=== PATIENT | male | born 1970 | race African-American/Black ===

== ENCOUNTER 2025-03-02 15:45 | Emergency (ER) | payer OTHER, SELFPAY ==
[2025-03-02 15:48] VITALS: BP 134/82
[2025-03-02 16:32] LABS: ALT (SGPT) 15 U/L (0-50); AST (SGOT) 18 U/L (17-59); Albumin 4.1 g/dl (3.5-5.0); Alkaline Phosphatase 83 U/L (38-126); Blood Urea Nitrogen 14 mg/dl (9-20); Calcium 12.4 mg/dl (8.4-10.2); Carbon Dioxide 26 mmol/L (22-30); Chloride 111 mmol/L (98-107); Glucose 93 mg/dl (70-99); Potassium 4.1 mmol/L (3.5-5.1); Sodium 141 mmol/L (135-145); Total Protein 7.6 g/dl (6.3-8.2); eGFR > 60.00
[2025-03-02 16:38] LABS: Hematocrit 41.7 % (39.0-52.0); Hemoglobin 14.0 g/dL (13.0-18.0); Mean Corp Hgb Conc. 33.6 g/dL (33.0-37.0); Mean Corpuscular Volume 92.3 fL (80.0-94.0); Nucleated Red Blood Cells % 0 % (-); Platelet Count 264 10^3/uL (130-400); Red Cell Dist. Width 12.8 % (11.5-14.5)
[2025-03-02 19:52] VITALS: BP 142/83
[2025-03-02 19:53] VITALS: BMI 25.8
--- NOTE | 2025-03-02 20:12 | ED.GENMED ---
History of Present Illness
General
Chief Complaint: Abnormal Lab Value
Source: patient
Exam Limitations: none
Time Seen by Provider: 03/02/25 19:52
History of Present Illness
History of Present Illness:
54-year-old male presents asymptomatic but with elevated calcium. His calcium levels have been mildly elevated in the past during routine lab work. This past month patient had his routine labs that showed a calcium that had elevated into the 12+
range. His physician then sent a PTH and TSH. PTH was elevated. Patient was sent to the ER for further evaluation. He is again asymptomatic.
Past History
Past History
ED Past Medical History: Asthma
Review of Systems
Review of Systems
All Other Systems: Not applicable
Constitutional: Denies fever or chills
Respiratory: Reports no symptoms
Cardiac: Reports no symptoms
ABD/GI: Reports no symptoms
Phy Exam
Physical Exam
Physical Exam:
GENERAL: Alert and oriented in no apparent distress
EYE: Orbits normal.
NECK: Supple, no thyroid palpable
ENT: Pharynx without erythema
CARDIAC: Regular rate and rhythm without any obvious murmurs.
LUNGS: Clear breath sounds,normal
ABDOMEN: Soft, without focal tenderness or distention
NEUROLOGICAL: Alert and oriented , grossly non-focal
SKIN: Warm and dry, no rash or lesion, no discoloration, skin intact.
MUSCULOSKELETAL: No edema,no deformity.Good color
PSYCH: Normal and appropriate interaction.
Course
Orders/Labs/Results
Orders:
Orders
03/02/25 15:54
Electrocardiogram (*1) Urgent
Reason for Study: Other
Other Reason for Exam: elevated calcium
EKG- Treatment ONCE
03/02/25 16:02
Complete Blood Count/With Diff Urgent
Comprehensive Metabolic Panel Urgent
Abnormal Lab Results
03/02/25
16:02
RBC 4.52 L 10^6/uL
(4.70-6.10)
Monocytes % 10.9 H %
(1.7-9.3)
Chloride 111 H mmol/L
(98-107)
Calcium 12.4 H mg/dl
(8.4-10.2)
03/02/25 16:02
03/02/25 16:02
Vital Signs
Initial and Last Documented VS:
Initial Vital Signs
Temp Pulse Resp BP Pulse Ox
98.2 F 76 15 134/82 99
03/02/25 15:48 03/02/25 15:48 03/02/25 15:48 03/02/25 15:48 03/02/25 15:48
Last Documented Vital Signs
Temp Pulse Resp BP Pulse Ox
98.2 F 76 15 142/83 97
03/02/25 15:48 03/02/25 15:48 03/02/25 15:48 03/02/25 19:52 03/02/25 19:54
MDM/Problems Addressed
Differential Diagnosis Includes:
Totally asymptomatic with mild hypercalcemia. PTH elevated. Likely primary hyperparathyroid issue. Sent these reports to endocrinology and nephrology. Endocrinology will follow-up tomorrow arrange an outpatient visit and likely help arrange any
surgical involvement if needed. Patient is comfortable with this approach
*Pulse Oximetry
SaO2: 97
Oxygen Mode of Delivery: Room air
Patient hypoxic: no
*EKG
Interpretation: abnormal
Comparison EKG: no comparison EKG present
Heart Rate: 71
Rate: normal
Rhythm: sinus
Interval: normal interval
QRS Pattern: normal QRS
Ischemia: non-specific ST changes
*Anesthesiology Tech Interpretation
Rate: normal
Interpretation: normal
Heart Rate: 70
Rhythm: sinus
*Critical Care Note
Total Time (30-74mins, 75-104mins- exclusive of procedures): Not Applicable
ED Attending Note
-
Portions of this chart may have been created with voice recognition software.� Occasional wrong word or��sound alike� substitutions may have occurred due to the inherent limitations of voice recognition software.
Discharge Plan
Departure
Patient Disposition: Home (Routine Discharge)
Date of Disposition: 03/02/25
Time of Disposition: 20:15
Patient with high blood pressure during this ER visit?: Yes
Discharge Problem:
Hypercalcemia
Instructions: Hypercalcemia, BLOOD PRESSURE
Referrals:
Anthony Eden MD [Consulting Staff, Endocrinology]
UNKNOWN - PT NOT,INTERVIEWE [Family Provider]
Activity Restrictions/Additional Instructions:
The store host should call you tomorrow morning to arrange for close follow-up
Interventions
Interventions:
*Risk Screen - Suicide Last Done: 03/02/25 15:48
*General Assessment Last Done: 03/02/25 19:54
*Neglect/Abuse Screening Last Done: 03/02/25 15:48
*ED- Fall Risk Assessment Last Done: 03/02/25 19:54
*ED COVID-19 Vaccine History Last Done: 03/02/25 19:54
Discharge Date and Time
Print Language: LAO
== END 2025-03-02 20:37 | disposition home or self-care (01) ==
LOC: EMR 15:45
PROVIDERS: Emergency Medicine; EMERGENCY PHYSICIAN Emergency Medicine; FAMILY PHYSICIAN Internal Medicine Pulmonary Disease
DX: E83.52 Hypercalcemia (principal); R03.0 Elevated blood-pressure reading, without diagnosis of hypertension; J45.909 Unspecified asthma, uncomplicated
CPT/HCPCS: 99283; 80053; 84443; 85025; 93005

== ENCOUNTER 2025-06-16 06:17 | Day surgery (SDC) | payer OTHER, SELFPAY ==
[2025-06-02 09:11] LABS: Hematocrit 42.8 % (39.0-52.0); Hemoglobin 14.2 g/dL (13.0-18.0); Mean Corp Hgb Conc. 33.2 g/dL (33.0-37.0); Mean Corpuscular Volume 93.4 fL (80.0-94.0); Platelet Count 261 10^3/uL (130-400); Red Cell Dist. Width 12.2 % (11.5-14.5)
[2025-06-02 09:15] LABS: INR 1.06; PT 14.1 Sec (11.4-14.6)
[2025-06-02 09:17] LABS: APTT 32.0 Sec (23.4-35.0)
[2025-06-02 09:57] LABS: ALT (SGPT) 16 U/L (0-50); AST (SGOT) 21 U/L (17-59); Albumin 4.3 g/dl (3.5-5.0); Alkaline Phosphatase 90 U/L (38-126); Blood Urea Nitrogen 18 mg/dl (9-20); Calcium 13.5 mg/dl (8.4-10.2); Carbon Dioxide 30 mmol/L (22-30); Chloride 110 mmol/L (98-107); Glucose 87 mg/dl (70-99); Potassium 4.8 mmol/L (3.5-5.1); Sodium 142 mmol/L (135-145); Total Protein 7.8 g/dl (6.3-8.2); eGFR > 60.00
[2025-06-02 14:02] VITALS: BMI 25.7
[2025-06-16] VITALS (8 sets, daily range): BP systolic 126–155; BP diastolic 80–94; BMI 25.7
[2025-06-16] MEDS: NEURONTIN 300 MG PO (11:36)
[2025-06-16] MEDS: NORMOSOL-R/PLASMALYTE-A 1000 IV (11:36)
[2025-06-16] MEDS: TYLENOL 1000 MG PO (11:36)
[2025-06-16] MEDS: HEPARIN 5000 UNITS SC (11:42)
[2025-06-16 12:37] LABS: Turbo PTH 301.3 pg/ml (14.5-75.2)
--- NOTE | 2025-06-16 13:24 | OR.RPT ---
Operative Report
Operative Report
Date of Operation: June 16, 2025
Preoperative Diagnosis: Parathyroid hyperparathyroidism - E210
Postoperative Diagnosis: Same
Surgeon: Gomez Braden M.D.
Operation: Minimally Invasive Left Parathyroidectomy - 54441
Anesthesia: GET
Estimated Blood Loss: 15 cc
Drains: None
Specimen: Left neck nodule, rule out parathyroid adenoma
Complications: None
Procedure:
The patient was taken to the operating room and placed in the usual supine position. After adequate general endotracheal anesthesia was established, the patient's neck was extended, prepped, and draped in the typical sterile fashion. A 4 cm
transcervical incision was made two fingerbreadths above the sternal notch. The skin incision was made with the #15 blade, and this was taken through the skin into the subcutaneous tissue. The underlying platysma muscle was divided, and subplatysmal
flaps were created superiorly to the thyroid cartilage and inferiorly to the sternal notch. Strap muscles were identified and at the midline.
The attention was turned to the left side of the neck. The left thyroid lobe was mobilized medially. During this process, the left recurrent laryngeal nerve was identified and preserved throughout the surgery. A large left neck nodule was identified
and noted to be enlarged, excised, and sent to the pathology department, which showed a hypercellular parathyroid gland. The intraoperative PTH levels normalized.
After obtaining adequate hemostasis, the strap muscles were reapproximated with #3-0 Vicryl in a running fashion. The platysma muscle was reapproximated with #3-0 Vicryl in an interrupted fashion, and the skin was approximated with #4-0 Monocryl in
a running subcuticular fashion. The Steri-Strips and sterile dressings were placed. The patient tolerated the procedure well. The final instrument, needle, and sponge counts were correct. The patient was extubated and transferred to the PACU.
[2025-06-16 13:37] LABS: Turbo PTH 74.2 pg/ml (14.5-75.2)
[2025-06-16] MEDS: SUBLIMAZE 25 MCG IV ×2 (14:10→14:20)
== END 2025-06-16 15:32 | disposition home or self-care (01) ==
LOC: SDS 06:17
PROVIDERS: ATTENDING PHYSICIAN Surgery; FAMILY PHYSICIAN Anesthesiology
DX: E21.0 Primary hyperparathyroidism (principal)
CPT/HCPCS: 60500; 80053; 83970; 85027; 85610; 85730; 88305; 88331; 93005